=== PATIENT | male | born 1950 | race Caucasian/White ===

== ENCOUNTER 2017-12-27 13:05 | Emergency (ER) | payer MEDICARE, SELFPAY ==
[2017-12-27 13:05] VITALS: BMI 30.6
--- NOTE | 2017-12-27 13:14 | CPS ---
Patient intubated per squad, upon arrival EZ Cap x 2 confirmed placement along with equal chest rise with bagging.
--- NOTE | 2017-12-27 13:20 | ED.VISSUMM ---
- ER Visit Summary Date of Service: 12/27/17 Chief Complaint: Cardiopulmonary arrest History of Present Illness: The patient is a 66 year old male who presents in cardiopulmonary arrest. He had a witnessed collapse and CPR was started by bystander. On EMS arrival the patient was in ventricular fibrillation. He was initially defibrillated at 200 J and then again at 300 J. After this he developed asystole. He has remained in asystole during transport here to the emergency department. At the time of arrival to the emergency department he had a downtime of 40 minutes. He was intubated prehospital and also had a left tibial IO placed. He was given 4 rounds of epinephrine. There has been no return of spontaneous circulation. EMS confirms visualizing tube passed through the vocal cords equal chest rise and change in capnometer as well as end-tidal CO2. Physical Examination: No spontaneous respirations, no heart tones or palpable pulse Patient is cyanotic and a tracheal tube in place 25 cm of the teeth emesis noted No heart tones no palpable pulse Equal chest rise with bagging No evidence of trauma Pupils are fixed and dilated Abdomen is soft Symmetric lower extremity edema Test Results: Monitor shows asystole. Bedside cardiac ultrasound shows no cardiac activity Emergency Department Course and Treatment: Patient presents in asystole with prolonged downtime. An IV was established in the right arm. Patient was also given IV epinephrine and bicarbonate through the IO. He remained in asystole. Bedside ultrasound showed no cardiac activity and he is fixed and dilated. Patient was pronounced . Treatment Plan: [] Disposition: Impression: Cardiopulmonary arrest Asystole This note was generated with [employer] dictation software. It may contain incorrect words, spelling, and punctuation that were not noted in review of the chart prior to signing ED Disposition - Plan for ED Patient: Chief Complaint: CPR Referrals: Care Physician,No Primary [Primary Care Provider] -
--- NOTE | 2017-12-27 13:25 | ED.DCSUM_ITS ---
- ER Visit Summary Date of Service: 12/27/17 Chief Complaint: Cardiopulmonary arrest History of Present Illness: The patient is a 66 year old male who presents in cardiopulmonary arrest. He had a witnessed collapse and CPR was started by bystander. On EMS arrival the patient was in ventricular fibrillation. He was initially defibrillated at 200 J and then again at 300 J. After this he developed asystole. He has remained in asystole during transport here to the emergency department. At the time of arrival to the emergency department he had a downtime of 40 minutes. He was intubated prehospital and also had a left tibial IO placed. He was given 4 rounds of epinephrine. There has been no return of spontaneous circulation. EMS confirms visualizing tube passed through the vocal cords equal chest rise and change in capnometer as well as end -tidal CO2. Physical Examination: No spontaneous respirations, no heart tones or palpable pulse Patient is cyanotic and a tracheal tube in place 25 cm of the teeth emesis noted No heart tones no palpable pulse Equal chest rise with bagging No evidence of trauma Pupils are fixed and dilated Abdomen is soft Symmetric lower extremity edema Test Results: Monitor shows asystole. Bedside cardiac ultrasound shows no cardiac activity Emergency Department Course and Treatment: Patient presents in asystole with prolonged downtime. An IV was established in the right arm. Patient was also given IV epinephrine and bicarbonate through the IO. He remained in asystole. Bedside ultrasound showed no cardiac activity and he is fixed and dilated. Patient was pronounced . Treatment Plan: [] Disposition: Impression: Cardiopulmonary arrest Asystole This note was generated with [employer] dictation software. It may contain incorrect words, spelling, and punctuation that were not noted in review of the chart prior to signing ED Disposition - Plan for ED Patient: Chief Complaint: CPR Referrals: Care Physician,No Primary [Primary Care Provider] -
--- NOTE | 2017-12-27 13:57 | CASEMGMT ---
Social Work Note Code Blue called. SW responds to meet with family. , Marsha, arrives and SW and Светлана Zamora meet at entrance. informed that compressions are currently underway and she is escorted back to Room 19 to await the physician's udpate. Provide support, and Marsha, declines for SW or Continuous Drier Operator to make any phone calls on her behalf. Emotional support provided by both disciplines. ED physician and RN enter room to deliver news to Marsha. Go through the course of treatment that took place, but that the pt passed. Physician and RN both reassure Marsha that she did all she could as well as the staff. Physician makes known to pt that he is available if she has further questions. Marsha expresses that she would like to see her spouse. Check with nursing staff who have not yet contacted the assistant terminal manager and request that we wait until this is complete and equipment removed. Update who states she would like to see him. Confirm with staff that she may go in. Per mmd unit teacher she may, but needs to be updated that the pt is still intubated and has IVs, and she cannot be left unattended until the assistant terminal manager makes their determination. Explained the above to Marsha and she is escorted back to the pt's room. Provide emotional support. She requests to return to empty room. Inquires what the next steps are and explain. She states that she and her spouse both wanted to be cremated and she thinks she would like to use [facility]. rope silica machine operator in to meet with pt regarding incident before she calls the assistant terminal manager, and Marsha's show worker arrives. Made aware that SW and Continuous Drier Operator are still available and Marsha thanks staff. Dominique Aguilar, SOLAR POOL HEATING INSTALLER, CLEANING HANDYMAN
--- NOTE | 2017-12-27 14:02 | CHAPLAIN ---
Type of Pastoral Visit ___ Initial Visit ___ Follow-up Visit ___ On-call Visit ___ General Patient Visit ___ Spiritual Assessment ___ Family Conference ___ Bereavement ___ Rapid Response _x__ Code Blue ___ Other (describe below) Pastoral Care Referral From ___ Patient ___ Family ___ Nurse ___ Physician ___ Recycling Technician ___ Medical Researcher _x__ Other (describe below) Sacrament/Intervention ___ Active listening ___ Anointing ___ Mormonism ___ Bereavement ___ Communion ___ Flor exploration ___ ___ Life review ___ Prayer ___ Reconciliation ___ Sacrament of Sick ___ Supportive presence ___ Wedding _x__ Other (describe below) Pastoral Comments met spouse of patient at the doorway and escorted her to outside of the room where patient was being treated; indicated to this airplane rental clerk that he would need to see spouse in a private room and RN established an available room for conference; pt was pronounced ; gave presence to spouse at time of meeting with and offered prayer with her after he left the room; staff contacted the grain miller helper for family and he arrived shortly after this meeting; offered ongoing support, along with our SW in the ED, to spouse, including time in room with body of patient
--- NOTE | 2017-12-27 14:41 | ED.RN ---
SEE CODE SHEET FOR PT CHARTING.
== END 2017-12-27 13:10 ==
PROVIDERS: Emergency Provider Emergency Medicine
DX: I46.9 Cardiac arrest, cause unspecified (principal); R60.0 Localized edema; R40.2430 Glasgow coma scale score 3-8, unspecified time
CPT/HCPCS: 92950; 94770; 99291; A4216